=== PATIENT | female | born 1965 | race African-American/Black ===

== ENCOUNTER 2022-03-25 13:53 | Outpatient (REF) | payer MEDICAID, SELFPAY ==
--- NOTE | ~2022-03-25 | XR_ITS ---
EXAMINATION: XR HIP, RIGHT XR HIP, LEFT CLINICAL INFORMATION: Bilateral hip pain. COMPARISON: None TECHNIQUE: Two views of each hip. FINDINGS: RIGHT HIP: The right hip joint and surrounding bone and soft tissues are unremarkable. LEFT HIP: The hip joint and surrounding bone and soft tissues are unremarkable. XR/XR hip LT min 2V IMPRESSION: Normal x-ray series of both hips.
--- NOTE | ~2022-03-25 | XR_ITS ---
EXAMINATION: XR HIP, RIGHT XR HIP, LEFT CLINICAL INFORMATION: Bilateral hip pain. COMPARISON: None TECHNIQUE: Two views of each hip. FINDINGS: RIGHT HIP: The right hip joint and surrounding bone and soft tissues are unremarkable. LEFT HIP: The hip joint and surrounding bone and soft tissues are unremarkable. XR/XR hip RT min 2V IMPRESSION: Normal x-ray series of both hips.
--- NOTE | ~2022-03-25 | XR_ITS ---
EXAMINATION: XR SHOULDER, RIGHT CLINICAL INFORMATION: Pain in right shoulder. COMPARISON: None TECHNIQUE: AP external rotation, Grashey, scapular Y, and axillary views of the right shoulder. FINDINGS: Acromioclavicular Joint: Normal Glenohumeral Joint: There is nonuniform joint space narrowing and marginal osteophytes indicative of moderate osteoarthritis. Surrounding bone and soft tissues unremarkable. XR/XR shoulder RT min 2V IMPRESSION: Moderate osteoarthritis of the glenohumeral joint.
== END 2022-03-25 13:54 | disposition home or self-care (01) ==
LOC: HO.XRAY 13:53
PROVIDERS: PCP General Practice; Visit Provider General Practice
DX: M25.511 Pain in right shoulder (principal); M25.551 Pain in right hip; M25.552 Pain in left hip
CPT/HCPCS: 73030; 73502

== ENCOUNTER → 2022-04-24 10:05 | Outpatient (BNVA) | payer MEDICAID, SELFPAY | PROVIDERS: PCP General Practice; Visit Provider Student in an Organized Health Care Education/Training Program | DX: M15.9 Polyosteoarthritis, unspecified (principal) | CPT/HCPCS: 99202 ==

== ENCOUNTER 2023-03-08 16:18 | Outpatient (REF) | payer MEDICAID, SELFPAY ==
--- NOTE | ~2023-03-08 | XR_ITS ---
EXAMINATION: XR CHEST CLINICAL INFORMATION: Leg swelling. COMPARISON: 10/01/2016 chest radiographs. TECHNIQUE: 2 views of the chest were obtained. FINDINGS: No significant abnormality is noted involving the heart, lungs, mediastinum, bony thorax or soft tissues. XR/XR chest 2V IMPRESSION: No acute cardiopulmonary process.
== END 2023-03-08 16:19 | disposition home or self-care (01) ==
LOC: HO.HHCX 16:18
PROVIDERS: Visit Provider General Practice
DX: R60.0 Localized edema (principal)
CPT/HCPCS: 71046

== ENCOUNTER 2023-03-08 16:30 | Outpatient (REF) | payer MEDICAID, SELFPAY ==
[2023-03-08 18:17] LABS: Anion Gap 15 (12-20); Blood Urea Nitrogen 16 mg/dL (9-16); Calcium 9.3 mg/dL (8.4-10.2); Carbon Dioxide 24 mmol/L (22-29); Chloride 106 mmol/L (96-108); Estimated Glomerular Filt Rate > 60; Glucose Random 93 mg/dL (60-115); Potassium 3.4 mmol/L (3.3-5.1); Sodium 142 mmol/L (135-145)
[2023-03-08 18:57] LABS: D Dimer High Sensitivity 302 NG/ML
== END 2023-03-08 16:31 | disposition home or self-care (01) ==
LOC: HO.HHCL 16:30
PROVIDERS: Visit Provider General Practice
DX: R60.0 Localized edema (principal)
CPT/HCPCS: 36415; 80048; 85379

== ENCOUNTER 2023-04-29 14:26 | Outpatient (AMB) | payer MEDICAID, SELFPAY ==
--- NOTE | 2023-04-29 14:18 | A.OFFVIS_ITS ---
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 Right leg is slightly worse than left leg and starting to develop on her feet. NO itching or burning but developing many VV clusters. 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 Complaints include pain over varicosities, swelling of lower extremities, cramping, fatigue, and heaviness of the lower extremities. It has been affecting there daily activities including walking. It is noted more so in right leg. Of note patient has 15 children. Also of note she grew up in [place]. Patient denies any previous venous surgery or injections. Patient denies any history of DVT/ PE. Patient denies any history of phlebitis. Trial of compression includes - [id number] They now present for vascular evaluation regarding their varicose veins. [facility] Medical History Generalized osteoarthritis Primary osteoarthritis, right shoulder Dyslipidemia Varicose vein of leg Prediabetes HTN (hypertension) Social History Alcohol intake: never Patient Tobacco Use Status: Never used Tobacco Review of Systems Const Reports as per HPI ENT Reports no additional complaints Card Denies chest pain, Denies chest pain at rest and Denies chest pain with activity Resp Denies chest congestion and Denies cough GI Reports no additional complaints Musc Details: pain over varicosities, aching of lower extremities, swelling, cramping, heaviness and tiredness, itching Denies abnormal gait Skin/Breast Reports pruritus and Denies wounds Neuro Reports no additional complaints and Denies abnormal gait Psych Denies no additional complaints Physical Exam Vital Signs: BMI result Body Mass Index 35.8 Const General: cooperative, healthy appearing and comfortable Orientation/consciousness: oriented to person, oriented to place and oriented to time Neck Carotids: no bruits Chest Chest palpation & inspection: normal inspection of the chest and normal palpation of entire chest wall Resp Effort & Inspection: normal respiratory effort and able to speak in complete sentences Cardio Rate: regular rate Heart sounds: S1 normal heart sound present and S2 normal heart sound present Peripheral pulses: Peripheral pulses 2+ throughout GI Inspection: Yes normal to inspection Skin Other: +2 edema, large rope-like varicosities greater than 4 mm right thigh and calf CEAP Classification C4 - skin color changes Ep - Etiology Primary As - superficial veins P - reflux General skin exam: dry skin Neuro General: oriented to person, oriented to place and oriented to time Extrem Right lower extremity: full ROM, normal capillary refill and edema Left lower extremity: full ROM, normal capillary refill and edema Psych Mental Status: mental status grossly normal Assessment & Plan Assessment & Plan (1) Varicose veins of right lower extremity with inflammation: Code(s): I83.11 - Varicose veins of right lower extremity with inflammation Plan: In short, the patient has evidence of venous insufficiency. I have discussed the pathophysiology with the patient. In addition I have provided informational material regarding venous disease to the patient. We have discussed conservative measures including compression, elevation, and exercise. I have also provided a handout regarding appropriate use of compression stockings and where to purchase good compression stockings as well. I have taken the liberty of ordering venous insufficiency testing with the patient. They will follow up with me after testing. The patient had an opportunity to ask questions regarding the treatment plan. All questions were answered. Imaging studies, laboratory studies and physical exam results were discussed and reviewed in detail. No major barriers to understanding were identified. The patient expressed understanding and agreement with the above treatment plan. The patient is aware they should contact our office by phone for worsening of the current condition or the appearance of new symptoms. Thank you for allowing me to participate in the vascular care of this patient. If you have any questions or concerns regarding the treatment for the above condition please do not hesitate to contact me. The office telephone contact is [phone]. This note is constructed using voice recognition software. While every effort has been made to ensure accuracy, trench digging machine operator errors may have been included. Thank you for allowing me to participate in the care of your patient. Yours sincerely, Jamal Amaya MD, FACS, R.P.V.I. Orders: Orders US venous duplex LE BI 1 Week I83.11 - Varicose veins of right lower extremity with inflammation Coding Level of Care Code New Pt Level 4 (71580) Diagnoses Varicose veins of right lower extremity with inflammation I83.11
[2023-04-29 14:19] VITALS: BMI 35.8
== END 2023-04-29 14:41 | disposition home or self-care (01) ==
PROVIDERS: PCP General Practice; Visit Provider Surgery Vascular Surgery
DX: I83.11 Varicose veins of right lower extremity with inflammation (principal)
CPT/HCPCS: 99203

== ENCOUNTER → 2023-04-29 14:26 | Outpatient (BNVA) | payer MEDICAID, SELFPAY | PROVIDERS: PCP General Practice; Visit Provider Surgery Vascular Surgery ==

== ENCOUNTER 2023-05-11 12:55 | Outpatient (REF) | payer MEDICAID, SELFPAY ==
--- NOTE | ~2023-05-11 | US_ITS ---
EXAMINATION: US VENOUS REFLUX/INSUFFICIENCY CLINICAL INFORMATION: Varicose veins right lower extremity with [id number] COMPARISON: None. TECHNIQUE: Bilateral lower extremity venous insufficiency ultrasound was performed with velocity measurements. Color flow Doppler imaging was performed. FINDINGS: RIGHT SIDE: No evidence of DVT or venous reflux within the common femoral, mid femoral, or popliteal vein. GREATER SAPHENOUS VEIN: The right saphenofemoral junction measures 0.5cm. The reflux time is 0 ms. Proximal thigh measures 0.4cm. Reflux time is 0 ms. Mid thigh measures 0.2cm. Reflux time is 0 ms. Above-knee measures 0.3cm. Reflux time is 0 ms. At the knee measures 0.2cm. Reflux time is 2596 ms. Below the knee measures 0.3cm. Reflux time is 2408 ms. Mid calf measures 0.2cm. Reflux time is 0 ms. At the level of the ankle it measures 0.1cm. Reflux time is 0 ms. SMALL SAPHENOUS VEIN: The saphenopopliteal junction measures 0.4 cm. Reflux time is 0 ms. The upper right small saphenous vein measures 0.2 cm. Reflux time is 0 ms.. The lower small saphenous vein measures 0.2cm. Reflux time is 2740 ms. LEFT SIDE: No evidence of DVT or venous reflux within the common femoral, mid femoral, or popliteal vein. GREATER SAPHENOUS VEIN: The left saphenofemoral junction measures 0.5cm. The reflux time is 0 ms. Proximal thigh measures 0.5cm. Reflux time is 0 ms. Mid thigh measures 0.4cm. Reflux time is 0 ms. Above-knee measures 0.3cm. Reflux time is 0 ms. At the knee measures 0.3cm. Reflux time is 836 ms. Below the knee measures 0.2cm. Reflux time is 0 ms. Mid calf measures 0.2cm. Reflux time is 0 ms. At the level of the ankle it measures0.3cm. Reflux time is there is a lateral accessory saphenous vein which measures 0.3 cm at the saphenofemoral junction. At the level of the saphenofemoral junction and does not demonstrate reflux. At the level of the mid thigh the vessel measures 0.2 cm and reflux time is 2576 ms.. SMALL SAPHENOUS VEIN: The saphenopopliteal junction measures 0.3 cm. Reflux time is 0 ms. The upper left small saphenous vein measures 0.2 cm. Reflux time is 0 ms. The lower small saphenous vein measures 0.2cm. Reflux time is 0 ms. US/US venous duplex LE BI IMPRESSION: On the right there is segmental reflux within the great saphenous vein at and just below the knee. Within the small saphenous vein. There is reflux at the level of the distal calf. On the left there is venous reflux at the level of the knee within the great saphenous vein as well as within the mid thigh segment of a lateral accessory saphenous vein.
== END 2023-05-11 12:56 | disposition home or self-care (01) ==
LOC: HO.US 12:55
PROVIDERS: PCP General Practice; Visit Provider Surgery Vascular Surgery
DX: I83.11 Varicose veins of right lower extremity with inflammation (principal)
CPT/HCPCS: 93970

== ENCOUNTER 2023-06-03 09:57 | Outpatient (AMB) | payer MEDICAID, SELFPAY ==
--- NOTE | 2023-06-03 10:01 | A.OFFVIS_ITS ---
Intake Vital Signs 06/03/23 10:04 Height 5 ft 5 in Weight 215 lb BMI 35.8 Intake Visit Reasons: follow up [facility] 05/11/2023 Intake Note: follow up 05/11/23 for bilateral VV. Right Leg slightly worse than Left LE. Has Large VV clusters. Pt is on her feet a lot and has had 15 children. Compression socks didn't fit properly. Accompanied by: Daughter Allergies aspirin Allergy (Unknown, Verified 06/03/23 10:07) Rash hydrochlorothiazide Allergy (Unknown, Verified 06/03/23 10:07) Rash ropinirole Allergy (Unknown, Verified 06/03/23 10:07) Rash Sulfa (Sulfonamide Antibiotics) Allergy (Unknown, Verified 06/03/23 10:07) Rash HPI follow up [facility] 05/11/2023 HPI Details Very pleasant 57-year-old female presents for follow-up evaluation regarding venous insufficiency. She reports that she has some mild swelling of the lower extremities and some calf varicosities which are not significantly painful for her. She is just concerned about her legs and wanted them evaluated. She now presents to us for follow-up with venous insufficiency testing. Of note she has had 15 children. In addition casting assistant was present during the entire visit [facility] Medical History Generalized osteoarthritis Primary osteoarthritis, right shoulder Dyslipidemia Varicose vein of leg Prediabetes HTN (hypertension) Social History Alcohol intake: never Patient Tobacco Use Status: Never used Tobacco Review of Systems Const All systems reviewed & are unremarkable except as noted in HPI and below Reports no additional complaints ENT Reports Normal hearing present Card Denies chest pain, Denies chest pain at rest, Denies chest pain with activity and Denies pedal edema Resp Denies cough GI Denies abdominal pain Musc Denies abnormal gait, Denies muscle cramps and Denies radiating pain into limb Skin/Breast Denies skin ulcer and Denies wounds Neuro Reports Normal hearing present and Denies abnormal gait Psych Reports no additional complaints Physical Exam Vital Signs: BMI result Body Mass Index 35.8 Const General: cooperative, healthy appearing and comfortable Orientation/consciousness: oriented to person, oriented to place and oriented to time HEENT Head: Yes normal to inspection Neck Neck: Yes normal visual inspection Carotids: no bruits Chest Chest palpation & inspection: normal inspection of the chest Resp Effort & Inspection: normal respiratory effort and able to speak in complete sentences Auscultation: clear to auscultation bilaterally, no crackles, no rales, no rhonchi and no wheezes Cardio Rate: regular rate Rhythm: regular rhythm Heart sounds: S1 normal heart sound present and S2 normal heart sound present Bruits: no carotid bruits Peripheral pulses: Peripheral pulses 2+ throughout GI Inspection: Yes normal to inspection Skin Wounds: no wounds Hair: normal Neuro General: oriented to person, oriented to place and oriented to time Cranial nerves: Yes CN's II-XII intact bilaterally and Yes Normal hearing present Cognition (Neuro): normal cognition Motor exam (neuro): 5/5 motor strength present throughout Extrem Other: venous exam: +1 edema bilateral superficial varicosities in calf General: No clubbing, No cyanosis and No edema Psych Appearance: grossly normal Mental Status: mental status grossly normal Speech and movement: Normal speech and movement present Results Reviewed Results Reviewed: Brief summary of venous insufficiency testing is as follows: right great saphenous vein: negative focally positive at knee right small saphenous vein: negative right accessory vein: none present left great saphenous vein: negative focally positive at knee left small saphenous vein: negative left accessory vein: none present Please note there is no evidence of any venous aneurysms or significant tortuosity Assessment & Plan Assessment & Plan (1) Varicose veins of right lower extremity with inflammation: Code(s): I83.11 - Varicose veins of right lower extremity with inflammation Plan: In short patient is negative for any significant venous insufficiency. She does have some mild calf varicosities and at the current time she has elected to manage this conservatively. She does not want any intervention. We did discuss routine conservative measures including compression elevation and exercise. She will follow-up on an as-needed basis with us. Thank you for allowing us to assist in her care. If there are any questions or concerns please do not hesitate to contact us. Coding Level of Care Code Est Pt Level 4 (88384) Diagnoses Varicose veins of right lower extremity with inflammation I83.11
[2023-06-03 10:04] VITALS: BMI 35.8
== END 2023-06-03 10:21 | disposition home or self-care (01) ==
PROVIDERS: PCP General Practice; Visit Provider Surgery Vascular Surgery
DX: I83.11 Varicose veins of right lower extremity with inflammation (principal)
CPT/HCPCS: 99213

== ENCOUNTER → 2023-06-03 09:57 | Outpatient (BNVA) | payer MEDICAID, SELFPAY | PROVIDERS: PCP General Practice; Visit Provider Surgery Vascular Surgery | DX: I83.11 Varicose veins of right lower extremity with inflammation (principal) | CPT/HCPCS: 99212 ==

== ENCOUNTER 2024-01-31 14:36 | Outpatient (REF) | payer MEDICAID, SELFPAY ==
[2024-01-31 16:09] LABS: MANUAL DIFF FLAG NO
[2024-01-31 16:14] LABS: Basophils Absolute Auto 0.1 X10*3/uL (0.0-0.2); Basophils Percent Auto 0.7 % (0-2); Eosinophils Absolute Auto 0.1 X10*3/uL (0.0-0.4); Hematocrit 42.9 % (37.0-47.0); Hemoglobin 14.2 g/dl (12.0-16.0); Imm Gran Abs Auto 0.02 X10*3/uL (0.00-0.03); Imm Gran Pct Auto 0.2 % (0.0-0.4); Lymphocytes Absolute Auto 3.2 X10*3/uL (1.2-4.9); Lymphocytes Percent Auto 32.1 % (20-40); Mean Corpuscular HGB Conc 33.1 g/dl (31.0-35.0); Mean Corpuscular Volume 84.6 fL (80.0-98.0); Mean Platelet Volume 10.5 fL (9.4-12.3); Monocytes Absolute Auto 0.8 X10*3/uL (0.1-1.2); Monocytes Percent Auto 7.9 % (2-11); Neutrophils Absolute Auto 5.8 x10*3/uL (2.0-8.3); Neutrophils Percent Auto 58.1 % (45-73); Platelet Count 324 X10*3/uL (160-400); Red Blood Count 5.07 X10*6/uL (4.20-5.50); Red Cell Distribution Width 13.1 % (11.0-16.0)
[2024-01-31 16:41] LABS: Estimated Average Glucose 128 mg/dL; Hemoglobin A1c % 6.1 % (<6.0)
[2024-01-31 16:47] LABS: Alanine Aminotransferase 14 U/L (0-31); Albumin Level 3.9 g/dL (3.5-5.0); Alkaline Phosphatase 98 U/L (39-117); Anion Gap 16 (12-20); Aspartate Amino Transferase 19 U/L (5-31); Bilirubin Total 0.4 mg/dL (0.0-1.0); Blood Urea Nitrogen 19 mg/dL (9-16); Calcium 9.5 mg/dL (8.4-10.2); Carbon Dioxide 21 mmol/L (22-29); Chloride 110 mmol/L (96-108); Cholesterol 180 mg/dL (<200); Estimated Glomerular Filt Rate 59; Glucose Random 115 mg/dL (60-115); HDL Cholesterol 41 mg/dL (>40); LDL Cholesterol Calculated 115 mg/dL (<100); Lipase 9 U/L (8-78); Potassium 3.9 mmol/L (3.3-5.1); Sodium 143 mmol/L (135-145); Total Protein 7.3 g/dL (6.5-8.0); Triglycerides 121 mg/dL (<150)
[2024-01-31 17:03] LABS: Vitamin D 25-OH Total 47.8 ng/mL (>30)
== END 2024-01-31 14:37 | disposition home or self-care (01) ==
LOC: HO.HHCL 14:36
PROVIDERS: Visit Provider General Practice
DX: R10.84 Generalized abdominal pain (principal); I10 Essential (primary) hypertension
CPT/HCPCS: 36415; 80053; 80061; 82306; 83036; 83690; 85025

== ENCOUNTER 2025-02-02 12:14 | Outpatient (REF) | payer MEDICAID, SELFPAY ==
--- OUTSIDE RECORDS SUMMARY | 2025-02-02 12:17 | XMS_ITS | Clinical Summary ---
Author Organization [facility], Address [address] [place] [address] Phone Care Team Providers Care Printer [employer] Name Role Phone Julian Dillard ETHYLENE COMPRESSOR OPERATOR Primary Care Provider Allergies Active Allergy Reactions Criticality Noted Date Comments Hydrochlorothiazide 10/11/2020 Ropinirole 10/11/2020 Trimethoprim 10/11/2020 Medications amLODIPine (NORVASC) 5 MG tablet Take 1 tablet by mouth 1 (one) time each day Active acetaminophen (TYLENOL) 500 MG tablet Take 1 tablet by mouth 4 (four) times a day Active hydroCHLOROthiaz jodi (HYDRODIURIL) 12.5 MG tablet Take 1 tablet (12.5 mg total) by mouth 1 (one) time each day 30 tablet 11 04/08/2020 Active Active Problems Problem Noted Date Diagnosed Date Chronic kidney disease stage 1 09/14/2019 Hypertensive disorder 09/14/2019 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 Proteinuria 09/14/2019 Type 2 diabetes mellitus 09/14/2019 Family History Relation Status Comments Father Unknown Mother Unknown Social History Tobacco Use Types Packs/Day Years Used Date Smoking Tobacco: Never Alcohol Use Standard Drinks/Week Comments No 0 (1 standard drink = 0.6 oz pur e alcohol) Comments Unknown Sex and Gender Information Value Date Recorded Sex Assigned at Not on file Legal Sex Female 4:31 PM EST Gender Identity Not on file Sexual Orientation Not on file Last Filed Vital Signs Vital Sign Reading Time Taken Comments Blood Pressure 124/75 09/18/2019 2:48 PM EST Pulse 78 09/18/2019 2:48 PM EST Temperature - - Respiratory Rate 16 09/18/2019 2:48 PM EST Oxygen Saturation - - Inhaled Oxygen Concentration - - Weight 103 kg (228 lb) 09/18/2019 2:48 PM EST Height 165.1 cm (5' 5 ) 09/18/2019 2:48 PM EST Body Mass Index 37.94 09/18/2019 2:48 PM EST Plan of Treatment Health Maintenance Due Date Last Done Comments Breast Cancer Screening 1965 Pneumococcal Vaccine: 50+ Ye ars (1 of 2 - PCV) 1982 Colorectal Cancer Screening: Annual FOBT 2012 Colorectal Cancer Screening: Colonoscopy 2012 Colorectal Cancer Screening: Sigmoidoscopy 2012 Diabetes: Hemoglobin A1C 09/14/2019 Diabetes: Ophthalmology Exam 09/14/2019 Diabetes: Pedal Pulse Checked 09/14/2019 Diabetes: Sensory Foot Exam 09/14/2019 Diabetes: Visual Foot Exam 09/14/2019 Influenza Vaccine (#1) 2025 Hepatitis B Vaccine Aged Out No longe r eligible based on patient's age to complete this topic Insurance Medicaid [place] Care Teams Printer Small Print [employer] Relationship Specialty Start Date End Date Julian Dillard FNP [address] [place] [address], [address] [place] [address] PCP - General 05/23/19
--- OUTSIDE RECORDS SUMMARY | 2025-02-02 12:17 | XMS_ITS | Encounter Summary ---
Author Organization [facility] [employer] Address [address] [place] [address] [address] [place] [address] Care Team Providers Care Ground Operations Superintendent Name Role Phone Suzanne Sánchez MD Primary Care Provider [phone] Encounter Details Date Type Department Care Team (Late st Contact Info) Description 09/18/2022 Abstract [facility] [address] [place] [address] McwilliamsLiseth Ribeiro, DDS [address] [place] [address] Social History Tobacco Use Types Packs/Day Years Used Date Smoking Tobacco: Never Smokeless Tobacco: Never Alcohol Use Standard Drinks/Week Comments Never 0 (1 standard drink = 0.6 oz pur e alcohol) Depression Answer Date Recorded Patient Health Questionnaire-2 Score 0 08/17/2022 Comments Unknown Sex and Gender Information Value Date Recorded Sex Assigned at Female 05/18/2022 10:16 AM EDT Legal Sex Female 10:16 AM EDT Gender Identity Female 05/18/2022 10:16 AM EDT Sexual Orientation Don't know 08/17/2022 12 :05 PM EST Sexual Orientation Straight 08/17/2022 12 :05 PM EST COVID-19 Exposure Response Date Recorded In the last 10 days, have yo u been in contact with someone who was confirmed or suspected to have Coronavirus/COVID-19? No / Unsure 09/10/2022 10:45 AM EST documented as of this encounter Plan of Treatment Not on file documented as of this encounter Visit Diagnoses Not on filedocumented in this encounter Care Teams Ground Operations Superintendent Relationship Specialty Start Date End Date Suzanne Sánchez MD [address] [place] [address] PCP - General Family Medicine 03/11/21 documented as of this encounter
--- OUTSIDE RECORDS SUMMARY | 2025-02-02 12:17 | XMS_ITS | Clinical Summary ---
Author Organization [facility] Address [address] [place] [address] Care Team Providers Care Director Of Student Services Name Role Phone Unavailable Primary Care Provider Unavailabl e Social History Tobacco Use Types Packs/Day Years Used Date Smoking Tobacco: Never Assessed Comments Unknown Sex and Gender Information Value Date Recorded Sex Assigned at Not on file Legal Sex Female 2:09 AM EST Gender Identity Not on file Sexual Orientation Not on file Plan of Treatment Health Maintenance Due Date Last Done Comments Breast Cancer Screening 1965 DTaP,Tdap,and Td Vaccines (1 - Tdap) 1982 Cervical Cancer Screening: P ap Smear 1984 Pneumococcal Vaccine: 50+ Ye ars (1 of 1 - PCV) 2013 Zoster Vaccines (1 of 2) 2013 COVID-19 Vaccine ( - 2023-2 5 season) 2024 Depression Screening 2024 Influenza Vaccine (#1) 2025 RSV Immunization Adult Patie nts (1 - 1-dose 75+ series) 2038 Meningococcal ACWY Vaccine Aged Out 01/18/2019 N o longer eligible based on patient's age to complete this topic HIB Vaccines Aged Out No longer eligi ble based on patient's age to complete this topic HPV Vaccines Aged Out No longer eligi ble based on patient's age to complete this topic Hepatitis A Vaccines Aged Out No long er eligible based on patient's age to complete this topic Hepatitis B Vaccines Aged Out No long er eligible based on patient's age to complete this topic IPV Vaccines Aged Out No longer eligi ble based on patient's age to complete this topic MMR Vaccines Aged Out No longer eligi ble based on patient's age to complete this topic Meningococcal B Vaccine Aged Out No l onger eligible based on patient's age to complete this topic RSV Immunization Patients Un alexei 20 months Aged Out No longer eligible b ased on patient's age to complete this topic Varicella Vaccines Aged Out No longer eligible based on patient's age to complete this topic
[2025-02-02 13:28] LABS: Alanine Aminotransferase 12 U/L (0-31); Albumin Level 4.2 g/dL (3.5-5.0); Alkaline Phosphatase 93 U/L (39-117); Anion Gap 12 (12-20); Aspartate Amino Transferase 21 U/L (5-31); Blood Urea Nitrogen 16 mg/dL (9-16); Calcium 9.1 mg/dL (8.4-10.2); Carbon Dioxide 25 mmol/L (22-29); Chloride 110 mmol/L (96-108); Cholesterol 195 mg/dL (<200); Estimated Glomerular Filt Rate 58; HDL Cholesterol 41 mg/dL (>40); Potassium 3.9 mmol/L (3.3-5.1); Sodium 143 mmol/L (135-145); Total Protein 7.5 g/dL (6.5-8.0); Triglycerides 130 mg/dL (<150)
== END 2025-02-02 12:15 | disposition home or self-care (01) ==
LOC: HO.HHCL 12:14
PROVIDERS: PCP General Practice; Visit Provider General Practice
DX: R73.03 Prediabetes (principal)
CPT/HCPCS: 36415; 80053; 80061; 84443